=== PATIENT | female | born 1970 | race Hispanic/Latino ===

== ENCOUNTER 2023-03-21 10:49 | Emergency (ER) | payer SELFPAY ==
--- OUTSIDE RECORDS SUMMARY | 2023-03-21 10:52 | XMS REPORT | Continuity of Care Document ---
:1970 Author Organization [facility] t Address [address] [place] [address] Care Team Providers Name Role Phone PCP, PATIENT DOES NOT HAVE A Primary Care Physician Unavaila AQUILES Jimenez Attending Clinician Unavailable MARCIO ANDERSON Attending Clinician Unavailable MARCIO ANDERSON Admitting Clinician Unavailable Problems This patient has no known problems. Allergies, Adverse Reactions, Alerts Allergy Allergy Status Severity Reaction(s) Onset Inactive Treating Comm ents Source Name Type Date Date Clinician ACETAMIN DRUG Active Palpitations Un faith OPHEN INGREDI 9-15 ity of 00:00: [place] [address] [facility] Medications Ordered Filled Start Stop Current Ordering Indication Dosage Frequency Signature Comments Components Source Medication Medication Date Date Medication? Clinician (SIG) Name Name levothyroxi No 1mcg ne 125 mcg 4-15 tablet 00:00: 00 Dose 2020-07 No Unknown 2-10 00:00: 00 levothyroxi 2020-07 No 1mcg ne 125 mcg 2-10 tablet 00:00: 00 levothyroxi 2020-07 No 1mcg ne 125 mcg 2-08 tablet 00:00: 00 levothyroxi 2020-07 No 1mcg ne 125 mcg 0-29 tablet 00:00: 00 levothyroxi No 1mcg ne 125 mcg 7-09 tablet 00:00: 00 levothyroxi 0 No 1mcg ne 125 mcg 5-13 tablet 00:00: 00 levothyroxi 2019-07 No 1mcg ne 125 mcg 2-18 tablet 00:00: 00 levothyroxi 2020-1 No 1mcg ne 112 mcg 0-20 tablet 00:00: 00 spironolact 2020-0 No 1mg one 25 mg 9-17 tablet 00:00: 00 levothyroxi 2020-0 No 1mcg ne 112 mcg 9-17 tablet 00:00: 00 levothyroxi 2020-0 No 1mcg ne 137 mcg 7-22 tablet 00:00: 00 levothyroxi 2020-0 No 1mcg ne 150 mcg 7-10 tablet 00:00: 00 duloxetine 2020-0 No 1mg 30 mg 7-10 capsule,del 00:00: ayed 00 release levothyroxi 2020-0 No 1mcg ne 150 mcg 7-02 tablet 00:00: 00 Vital Signs Vital Name Observation Time Observation Value Comments Source BP Systolic 2022-03-30 08:44:00 119 mm[Hg] BP Diastolic 2022-03-30 08:44:00 78 mm[Hg] Weight Measured 2022-03-30 08:44:00 202.60 pounds Height Measured 2022-03-30 08:44:00 67.00 inches Body Temperature 2022-03-30 08:44:00 98.20 degrees Heart Rate 2022-03-30 08:44:00 86.00 /min Respiratory Rate 2022-03-30 08:44:00 18.00 /min BP Systolic 2021-06-16 14:20:00 126 mm[Hg] BP Diastolic 2021-06-16 14:20:00 82 mm[Hg] Weight Measured 2021-06-16 14:20:00 206.40 pounds Height Measured 2021-06-16 14:20:00 67.00 inches Body Temperature 2021-06-16 14:20:00 98.40 degrees Heart Rate 2021-06-16 14:20:00 86.00 /min Respiratory Rate 2021-06-16 14:20:00 BP Systolic 2021-06-08 09:44:00 117 mm[Hg] BP Diastolic 2021-06-08 09:44:00 78 mm[Hg] Weight Measured 2021-06-08 09:44:00 206.60 pounds Height Measured 2021-06-08 09:44:00 67.00 inches Body Temperature 2021-06-08 09:44:00 98.30 degrees Heart Rate 2021-06-08 09:44:00 90.00 /min Respiratory Rate 2021-06-08 09:44:00 BP Systolic 2021-01-10 11:09:00 121 mm[Hg] BP Diastolic 2021-01-10 11:09:00 66 mm[Hg] Weight Measured 2021-01-10 11:09:00 220.00 pounds Height Measured 2021-01-10 11:09:00 67.00 inches Body Temperature 2021-01-10 11:09:00 97.90 degrees Heart Rate 2021-01-10 11:09:00 64.00 /min Respiratory Rate 2021-01-10 11:09:00 16.00 /min BP Systolic 2020-06-22 13:15:00 131 mm[Hg] BP Diastolic 2020-06-22 13:15:00 71 mm[Hg] Weight Measured 2020-06-22 13:15:00 201.20 pounds Height Measured 2020-06-22 13:15:00 67.00 inches Body Temperature 2020-06-22 13:15:00 98.50 degrees Heart Rate 2020-06-22 13:15:00 72.00 /min Respiratory Rate 2020-06-22 13:15:00 17.00 /min BP Systolic 2020-01-15 09:14:00 105 mm[Hg] BP Diastolic 2020-01-15 09:14:00 70 mm[Hg] Weight Measured 2020-01-15 09:14:00 180.40 pounds Height Measured 2020-01-15 09:14:00 67.00 inches Body Temperature 2020-01-15 09:14:00 98.50 degrees Heart Rate 2020-01-15 09:14:00 78.00 /min Respiratory Rate 2020-01-15 09:14:00 16.00 /min BP Systolic 2020-01-07 08:07:00 114 mm[Hg] BP Diastolic 2020-01-07 08:07:00 74 mm[Hg] Weight Measured 2020-01-07 08:07:00 176.40 pounds Height Measured 2020-01-07 08:07:00 67.00 inches Body Temperature 2020-01-07 08:07:00 98.50 degrees Heart Rate 2020-01-07 08:07:00 74.00 /min Respiratory Rate 2020-01-07 08:07:00 16.00 /min Procedures This patient has no known procedures. Plan of Care Planned Activity Planned Date Details Comments Source Goal Plan of Care Note [code = 32918-4] Goal Plan of Care Note [code = 08049-2] Goal Plan of Care Note [code = 01620-2] Goal Plan of Care Note [code = 14292-4] Goal Plan of Care Note [code = 40270-5] Goal Plan of Care Note [code = 84292-0] Goal Plan of Care Note [code = 87100-6] Goal Plan of Care Note [code = 49341-8] Goal Plan of Care Note [code = 77863-8] Goal Plan of Care Note [code = 86216-7] Goal Plan of Care Note [code = 40475-8] Goal Plan of Care Note [code = 15016-0] Goal Plan of Care Note [code = 56879-3] Goal Plan of Care Note [code = 35904-7] Goal Plan of Care Note [code = 46125-0] Goal Plan of Care Note [code = 67583-8] Goal Plan of Care Note [code = 24853-6] Goal Plan of Care Note [code = 48906-7] Goal Plan of Care Note [code = 44627-1] Goal Plan of Care Note [code = 94743-9] Goal Plan of Care Note [code = 45045-9] Goal Plan of Care Note [code = 99776-9] Goal Plan of Care Note [code = 61833-1] Goal Plan of Care Note [code = 66403-0] Goal Plan of Care Note [code = 33065-8] Goal Plan of Care Note [code = 56657-4] Goal Plan of Care Note [code = 04770-9] Goal Plan of Care Note [code = 60705-6] Encounters Start End Encounter Admission Attending Care Care Encounter Source Date/Time Date/Time Type Type Clinicians Facility Department ID 2023-01-07 2023-01-07 Outpatient AMARIS GLEZ [id number] Mukesh 10:10:29 10:10:29 0703 Hai Black 2022-07-30 2022-07-30 Outpatient AMARIS GLEZ [id number] Mukesh 09:02:04 09:02:04 0123 Hai Black 2022-04-06 2022-04-06 Outpatient [facility] [id number] Mukesh 13:29:56 13:29:56 0930 F Wayne 2022-03-30 2022-03-30 Outpatient [id number] 00:00:00 00:00:00 Visit [id number] 2020-02-02 2020-02-02 Emergency X [facility] ERT [id number] [facility] 07:56:15 07:56:15 AQUILES [facility] 2019-11-09 2019-11-09 Emergency [facility] [id number] [facility] 13:27:05 18:13:00 MARCIO [facility] Results Test Description Test Time Test Comments Results Result Comments Source FSH + LH PROFILE 2023-01-08 06:13:29 Test Item Value Reference Range Interpretation Comme nts FOLLICLE STIM HORMONE (test 13.2 IU/L SEE BELOW EXPECTED VALUES FOR FSH code = 2700) FOR FEMALES >17 YEARS FOLLICULAR 3.5- 12.5 IU/L MID-CYCLE PEAK 4.7-21.5 IU/L LUTEAL PHASE 1. 7-7.7 IU/L POSTMENOPAUSAL 25.8-134.8 IU/L LUTEINIZING HORMONE (test code 4.4 IU/L SEE BELOW EXPECTED VALUES FOR LH = 2776) FOR FEMALES >17 YEARS MALES FEMALES >=18 YEARS 1.8-8.6 IU/L FOLLICULAR 2.4-12.6 IU/L MID-CYCLE PEAK 14.0-95.6 IU/L LUTEAL PHASE 1. 0-11.4 IU/L POSTMENOPAUSAL 7.7-58.5 IU/L TSH, THIRD [id number] 06:13:29 Test Item Value Reference Range Interpretation Comments TSH, THIRD GENERATION (test code 7.080 UIU/ML 0.400-4.100 H = 2821) [id number] 06:13:29 Test Item Value Reference Range Interpretation Comments PROLACTIN (test 3.5 NG/ML 5.0-37.0 L NOTE: Metho dology is Aydee code = 2800) [place] Electroch emiluminescence Immunoassay (EC JOEY). Values obtained with d ifferent assays/manufact urers cannot be used interchang eably. Results should not be u sed as sole basis to establ fang the presence or abs ence of malignancy. UNL ESS OTHERWISE INDICATED, [facility]. [address] [place] [address] LABORATORY DIRE CTOR: Nargis ROMERO JOEY NUMBER [id number] [facility] [place]. [id number] CBC W/AUTO DIFF WITH [id number] 03:27:20 Test Item Value Reference Range Interpretation Comments WBC (test code = 8.3 K/UL 3.5-11.0 1001) RBC (test code = 4.42 M/UL 3.80-5.40 1002) HEMOGLOBIN (test code 14.3 G/DL 11.5-15.5 = 1003) HEMATOCRIT (test code 42.6 % 34.0-45.0 = 1004) MCV (test code = 96.4 fL 80.0-99.0 1005) MCH (test code = 32.4 PG 25.0-33.0 1006) MCHC (test code = 33.6 G/DL 31.0-36.0 1007) RDW (test code = 13.6 % 11.5-15.0 1038) NEUTROPHILS (test 69.6 % code = 1008) LYMPHOCYTES (test 23.1 % code = 1010) MONOCYTES (test code 5.8 % = 1011) EOSINOPHILS (test 1.1 % code = 1012) BASOPHILS (test code 0.2 % = 1013) IMMATURE GRANULOCYTES 0.2 % (test code = 1036) NUCLEATED RBCS (test 0.0 /100 WBC'S See_Comment [Aut omated code = 1065) message] The sy stem which generated this result transmitted reference range : 0.0. The refere nce range was not u sed to interpret th is result as normal/abnormal . PLATELET COUNT (test 237 K/UL 130-400 code = 1015) ABSOLUTE NEUTROPHILS 5.78 K/UL 1.50-7.50 (test code = 1066) ABSOLUTE LYMPHOCYTES 1.92 K/UL 1.00-4.00 (test code = 1067) ABSOLUTE MONOCYTES 0.48 K/UL 0.20-1.00 (test code = 1068) ABSOLUTE EOSINOPHILS 0.09 K/UL 0.00-0.50 (test code = 1040) ABSOLUTE BASOPHILS 0.02 K/UL 0.00-0.20 (test code = 1069) ABS IMMATURE 0.02 K/UL 0.00-0.10 GRANULOCYTES (test code = 1020) ABS NUCLEATED RBCS 0.00 K/UL 0.00-0.11 (test code = 60359) TSH, THIRD [id number] 05:49:44 Test Item Value Reference Range Interpretation Comments TSH, THIRD GENERATION (test 13.700 UIU/ML 0.400-4.100 H code = 2821) LIPID [id number] 04:53:21 Test Item Value Reference Range Interpretation Comments CHOLESTEROL (test 247 MG/DL <200 H code = 2210) TRIGLYCERIDES (test 188 MG/DL <150 H code = 2232) HDL CHOLESTEROL (test 46 MG/DL >39 code = 2220) CALC LDL CHOL (test 167 MG/DL <100 H NOTE: C ALCULATED LDL code = 2237) IS BASED ON LEANNE-MCCALL METHOD WHICHINCLUDES ADJUSTABLE TRIGLYCERIDE:VL DL CHOLESTEROL RAT IO.THIS FACTOR VARIES B Y MEASURED TRIGLY CERIDE AND NON-HDLCHOL ESTEROL CONCENTRATIONS WITH INCREASED CALCU LATED LDL SEENIN HIGH ER TRIGLYCERIDE OR LOWER NON-HDL SPECIME NS. FOR MOREINFORMATION , SEE CLIENT ANNOUNCE MENT AT [email or web address] LDL/HDL 3.63 RATIO <3.22 H UNLESS O THERWISE (test code = 2238) INDICATED , ALL TESTING PERFORMED [facility], [place]. [address] [place] [address] [facility] DIRECTOR: Nargis ROGERSIA NUMBER [id number] CAP ACCREDITATION N O. [id number] COMPREHENSIVE METABOLIC [id number] 04:53:21 Test Item Value Reference Range Interpretation Comments GLUCOSE (test code = 87 MG/DL 70-99 2216) BUN (test code = 13 MG/DL 6-20 2207) CREATININE (test 0.79 MG/DL 0.60-1.30 code = 2214) eGFR (2020 CKD-EPI) 90 ML/MIN/1.73 >60 (test code = 95197) CALC BUN/CREAT (test 16 RATIO 6-28 code = 2235) SODIUM (test code = 139 MEQ/L 998-257 6612) POTASSIUM (test code 4.5 MEQ/L 3.5-5.4 = 2227) CHLORIDE (test code 103 MEQ/L 95-107 = 2214) CARBON DIOXIDE (test 24 MEQ/L 19-31 code = 220) CALCIUM (test code = 9.8 MG/DL 8.5-10.5 2208) PROTEIN, TOTAL (test 7.0 G/DL 6.1-8.3 code = 222) ALBUMIN (test code = 4.3 G/DL 3.5-5.2 2200) CALC GLOBULIN (test 2.7 G/DL 1.9-3.7 code = 224) CALC A/G RATIO (test 1.6 RATIO 1.0-2.6 code = 2233) BILIRUBIN, TOTAL <0.2 MG/DL See_Comment [Automated message] (test code = 2206) The [employer] which generated this result transmit abhijit reference range : <=1.2. The refe rence range was not u sed to interpret th is result as normal/abnormal . ALKALINE PHOSPHATASE 93 U/L 40-132 (test code = 2203) AST (test code = 13 U/L 9-40 2217) ALT (test code = 13 U/L 5-40 2218) TSH, THIRD [id number] 06:48:48 Test Item Value Reference Range Interpretation Comments TSH, THIRD GENERATION (test 38.600 UIU/ML 0.400-4.100 H code = 2821) LIPID [id number] 05:28:57 Test Item Value Reference Range Interpretation Comments CHOLESTEROL (test 232 MG/DL <200 H code = 2210) TRIGLYCERIDES (test 204 MG/DL <150 H code = 2232) HDL CHOLESTEROL (test 41 MG/DL >39 code = 2220) CALC LDL CHOL (test 155 MG/DL <100 H NOTE: C ALCULATED LDL code = 2237) IS BASED ON LEANNE-MCCALL METHOD WHICHINCLUDES ADJUSTABLE TRIGLYCERIDE:VL DL CHOLESTEROL RAT IO.THIS FACTOR VARIES B Y MEASURED TRIGLY CERIDE AND NON-HDLCHOL ESTEROL CONCENTRATIONS WITH INCREASED CALCU LATED LDL SEENIN HIGH ER TRIGLYCERIDE OR LOWER NON-HDL SPECIME NS. FOR MOREINFORMATION , SEE CLIENT ANNOUNCE MENT AT [email or web address] LDL/HDL 3.78 RATIO <3.22 H UNLESS O THERWISE (test code = 2238) INDICATED , ALL TESTING PERFORMED [facility], [facility]. [address] [place] [address] [facility] DIRECTOR: ANIL COSBY M.D. CLIA NUMBER [id number] CAP ACCREDITATION N O. [id number] PAP TEST, THINPREP, [id number] 14:21:09 Test Item Value Reference Range Interpretation Comments SOURCE: (test Cervical/Endoc code = 8001) ervical SLIDES: (test 2 code = 8011) LMP: (test code 06/09/2021 = 8021) SPECIMEN (NOTE) Satisfactory f or ADEQUACY: (test evaluation. Endocervical code = 24147) cells/transfor mation zone component present. INTERPRETATION: NILM/NO EPITH. (test code = ABNORMALITY;SE 43366) E BELOW ------- NEGATIVE FO R INTRAEPITHELIAL LESION OR MALIGNANCY ( NILM) --------- --------- --------- - OTHER COMMENTS: (NOTE) Interpreted using an (test code = alternate metho d of 8081) processing. Thi s testwas developed and i ts performance characteristics determined by [facility] [employer] It has not been cleared orappro cam by the FDA. The la boratory is regulated un rubi CLIA asqualified to perform high-complexity testing. This test is us edfor clinical purpos es. It should not be r egarded asinvestigation al or for research. REPORTS DEVELOPER Alicia : (test code = Margaux, 8101) CT(ASCP) QC TECHNOLOGIST: Aissatou (test code = AUSTIN Slater(ASC 8111) P)CT(IAC) LOCATION: (test (NOTE) Specimens pr ocessed and code = 40003) interpreted at [facility], [address] [place] [address], , CLIA: [id number] CPT: (test code (NOTE) 74770 UNLESS OTHERWISE = 8140) INDICATED, COMP UTER AIDED AND CYTOTECHNOLOGIS T SCREENING PERFO RMED. The Pap test is a s creening test with an in herent, but low probabi lity of error. Your pat ient should be remin ded to consult you imm ediately if she experien kyler any suspicious sign s or symptoms, regar dless of her Pap test re sult. An alternate repor t format containing imag es or consolidated pr ior Pap history is avai lable as applicable. PAP TEST, THINPREP, [id number] 00:00:00 Test Item Value Reference Range Interpretation Comments SOURCE: (test code = Cervical/Endocervical 8001) SLIDES: (test code = 2 8011) LMP: (test code = 8021) 06/09/2021 SPECIMEN ADEQUACY: (test (NOTE) code = 53845) INTERPRETATION: (test NILM/NO EPITH. code = 11505) ABNORMALITY;SEE BELOW OTHER COMMENTS: (test (NOTE) code = 8081) REPORTS DEVELOPER: (test Alicia Damico, code = 8101) CT(ASCP) QC TECHNOLOGIST: (test Aissatou code = 8111) AUSTIN Slater(ASCP)CT(IA C) LOCATION: (test code = (NOTE) 96299) CPT: (test code = 8140) (NOTE) PAP TEST, THINPREP, [id number] 00:00:00 Test Item Value Reference Range Interpretation Comments SOURCE: (test code = Cervical/Endocervical 8001) SLIDES: (test code = 2 8011) LMP: (test code = 8021) 06/09/2021 SPECIMEN ADEQUACY: (test (NOTE) code = 20956) INTERPRETATION: (test NILM/NO EPITH. code = 20516) ABNORMALITY;SEE BELOW OTHER COMMENTS: (test (NOTE) code = 8081) REPORTS DEVELOPER: (test Alicia Damico, code = 8101) CT(ASCP) QC TECHNOLOGIST: (test Aissatou code = 8111) AUSTIN Slater(ASCP)CT(IA C) LOCATION: (test code = (NOTE) 63333) CPT: (test code = 8140) (NOTE) CT/NG, TMA, [id number] 18:06:03 Test Item Value Reference Range Interpretation Comments GONORRHEA, TMA NEGATIVE NEGATIVE Assay method ology is (test code = nucleic acid am plification 21597) by transcriptio n mediated amplification ( TMA) utilizing the A ptima Combo 2 Assay. CHLAMYDIA, TMA NEGATIVE NEGATIVE Assay method ology is (test code = nucleic acid am plification 25811) by transcriptio n mediated amplification ( TMA) utilizing the A ptima Combo 2 Assay. UNLESS OTHERWISE INDICATED, ALL TESTING PERFORMED [facility] [address] [place] [address] DIRECTOR: ANIL COSBY M.D. CLIA NUMBER [id number] CAP ACCREDITATION N O. [id number] GC AND CHLAMYDIA AMPLIFIED, [id number] 00:00:00 Test Item Value Reference Range Interpretation Comments GONORRHEA, TMA (test code = 99873) NEGATIVE CHLAMYDIA, TMA (test code = 37264) NEGATIVE GC AND CHLAMYDIA AMPLIFIED, [id number] 00:00:00 Test Item Value Reference Range Interpretation Comments GONORRHEA, TMA (test code = 86188) NEGATIVE CHLAMYDIA, TMA (test code = 69613) NEGATIVE LIPID [id number] 00:00:00 Test Item Value Reference Range Interpretation Comments CHOLESTEROL (test code = 2210) 239 MG/DL TRIGLYCERIDES (test code = 2232) 230 MG/DL HDL CHOLESTEROL (test code = 2220) 37 MG/DL CALC LDL CHOL (test code = 2237) 163 MG/DL RISK RATIO LDL/HDL (test code = 4.41 RATIO 2238) LIPID [id number] 00:00:00 Test Item Value Reference Range Interpretation Comments CHOLESTEROL (test code = 2210) 239 MG/DL TRIGLYCERIDES (test code = 2232) 230 MG/DL HDL CHOLESTEROL (test code = 2220) 37 MG/DL CALC LDL CHOL (test code = 2237) 163 MG/DL RISK RATIO LDL/HDL (test code = 4.41 RATIO 2238) COMPREHENSIVE METABOLIC [id number] 00:00:00 Test Item Value Reference Range Interpretation Comments GLUCOSE (test code = 2217) 96 MG/DL BUN (test code = 2208) 10 MG/DL CREATININE (test code = 2214) 0.76 MG/DL eGFR AMER. (test code 105 ML/MIN/1.73 = 63316) eGFR NON- AMER. (test 91 ML/MIN/1.73 code = 50482) CALC BUN/CREAT (test code = 13 RATIO 2235) SODIUM (test code = 2231) 141 MEQ/L POTASSIUM (test code = 2228) 4.6 MEQ/L CHLORIDE (test code = 2215) 104 MEQ/L CARBON DIOXIDE (test code = 24 MEQ/L 2205) CALCIUM (test code = 2209) 9.7 MG/DL PROTEIN, TOTAL (test code = 7.5 G/DL 2228) ALBUMIN (test code = 2201) 4.4 G/DL CALC GLOBULIN (test code = 3.1 G/DL 2240) CALC A/G RATIO (test code = 1.4 RATIO 2234) BILIRUBIN, TOTAL (test code = 0.3 MG/DL 2206) ALKALINE PHOSPHATASE (test 124 U/L code = 2204) AST (test code = 2218) 18 U/L ALT (test code = 2219) 21 U/L COMPREHENSIVE METABOLIC [id number] 00:00:00 Test Item Value Reference Range Interpretation Comments GLUCOSE (test code = 2217) 96 MG/DL BUN (test code = 2208) 10 MG/DL CREATININE (test code = 2214) 0.76 MG/DL eGFR AMER. (test code 105 ML/MIN/1.73 = 28259) eGFR NON- AMER. (test 91 ML/MIN/1.73 code = 68955) CALC BUN/CREAT (test code = 13 RATIO 2235) SODIUM (test code = 2231) 141 MEQ/L POTASSIUM (test code = 2228) 4.6 MEQ/L CHLORIDE (test code = 2215) 104 MEQ/L CARBON DIOXIDE (test code = 24 MEQ/L 2205) CALCIUM (test code = 2209) 9.7 MG/DL PROTEIN, TOTAL (test code = 7.5 G/DL 2228) ALBUMIN (test code = 2201) 4.4 G/DL CALC GLOBULIN (test code = 3.1 G/DL 2239) CALC A/G RATIO (test code = 1.4 RATIO 2233) BILIRUBIN, TOTAL (test code = 0.3 MG/DL 2206) ALKALINE PHOSPHATASE (test 124 U/L code = 220) AST (test code = 2218) 18 U/L ALT (test code = 2219) 21 U/L THYROID II PROFILE (T3U, T4, T7, TSH)2021-06-09 00:00:00 Test Item Value Reference Range Interpretation Comments T-UPTAKE (test code = 2817) 27.2 % THYROX. BIND. CAPAC. (test code 1.2 = 01763) T4 (THYROXINE) (test code = 5.1 UG/DL 2818) CORRECTED T4 (FTI) (test code = 4.3 UG/DL 2820) TSH, THIRD GENERATION (test 15.600 UIU/ML code = 2821) THYROID II PROFILE (T3U, T4, T7, TSH)2021-06-09 00:00:00 Test Item Value Reference Range Interpretation Comments T-UPTAKE (test code = 7) 27.2 % THYROX. BIND. CAPAC. (test code 1.2 = 60044) T4 (THYROXINE) (test code = 5.1 UG/DL 2819) CORRECTED T4 (FTI) (test code = 4.3 UG/DL 2820) TSH, THIRD GENERATION (test 15.600 UIU/ML code = 2821) LIPID [id number] 00:00:00 Test Item Value Reference Range Interpretation Comments CHOLESTEROL (test code = 2210) 231 MG/DL TRIGLYCERIDES (test code = 2232) 224 MG/DL HDL CHOLESTEROL (test code = 2220) 45 MG/DL CALC LDL CHOL (test code = 2237) 150 MG/DL RISK RATIO LDL/HDL (test code = 3.33 RATIO 2238) LIPID [id number] 00:00:00 Test Item Value Reference Range Interpretation Comments CHOLESTEROL (test code = 2210) 231 MG/DL TRIGLYCERIDES (test code = 2232) 224 MG/DL HDL CHOLESTEROL (test code = 2220) 45 MG/DL CALC LDL CHOL (test code = 2237) 150 MG/DL RISK RATIO LDL/HDL (test code = 3.33 RATIO 2238) COMPREHENSIVE METABOLIC [id number] 00:00:00 Test Item Value Reference Range Interpretation Comments GLUCOSE (test code = 2217) 107 MG/DL BUN (test code = 2208) 13 MG/DL CREATININE (test code = 2214) 0.80 MG/DL eGFR AMER. (test code 100 ML/MIN/1.73 = 96976) eGFR NON- AMER. (test 86 ML/MIN/1.73 code = 18688) CALC BUN/CREAT (test code = 16 RATIO 2235) SODIUM (test code = 2231) 139 MEQ/L POTASSIUM (test code = 2228) 4.1 MEQ/L CHLORIDE (test code = 2215) 101 MEQ/L CARBON DIOXIDE (test code = 26 MEQ/L 2205) CALCIUM (test code = 2209) 9.5 MG/DL PROTEIN, TOTAL (test code = 7.2 G/DL 2228) ALBUMIN (test code = 2201) 4.2 G/DL CALC GLOBULIN (test code = 3.0 G/DL 2239) CALC A/G RATIO (test code = 1.4 RATIO 4) BILIRUBIN, TOTAL (test code = <0.2 MG/DL 2206) ALKALINE PHOSPHATASE (test 121 U/L code = 2204) AST (test code = 2218) 16 U/L ALT (test code = 2219) 18 U/L COMPREHENSIVE METABOLIC [id number] 00:00:00 Test Item Value Reference Range Interpretation Comments GLUCOSE (test code = 2217) 107 MG/DL BUN (test code = 2208) 13 MG/DL CREATININE (test code = 2214) 0.80 MG/DL eGFR AMER. (test code 100 ML/MIN/1.73 = 28519) eGFR NON- AMER. (test 86 ML/MIN/1.73 code = 25440) CALC BUN/CREAT (test code = 16 RATIO 2235) SODIUM (test code = 2231) 139 MEQ/L POTASSIUM (test code = 2228) 4.1 MEQ/L CHLORIDE (test code = 2215) 101 MEQ/L CARBON DIOXIDE (test code = 26 MEQ/L 2205) CALCIUM (test code = 2209) 9.5 MG/DL PROTEIN, TOTAL (test code = 7.2 G/DL 2228) ALBUMIN (test code = 2201) 4.2 G/DL CALC GLOBULIN (test code = 3.0 G/DL 2240) CALC A/G RATIO (test code = 1.4 RATIO 2234) BILIRUBIN, TOTAL (test code = <0.2 MG/DL 2206) ALKALINE PHOSPHATASE (test 121 U/L code = 2204) AST (test code = 2218) 16 U/L ALT (test code = 2219) 18 U/L THYROID II PROFILE (T3U, T4, T7, TSH)2021-01-11 00:00:00 Test Item Value Reference Range Interpretation Comments T-UPTAKE (test code = 2817) 24.3 % THYROX. BIND. CAPAC. (test code 1.3 = 31775) T4 (THYROXINE) (test code = 2.9 UG/DL 2819) CORRECTED T4 (FTI) (test code = 2.2 UG/DL 2820) TSH, THIRD GENERATION (test 19.400 UIU/ML code = 2821) THYROID II PROFILE (T3U, T4, T7, TSH)2021-01-11 00:00:00 Test Item Value Reference Range Interpretation Comments T-UPTAKE (test code = 2817) 24.3 % THYROX. BIND. CAPAC. (test code 1.3 = 82892) T4 (THYROXINE) (test code = 2.9 UG/DL 2819) CORRECTED T4 (FTI) (test code = 2.2 UG/DL 2820) TSH, THIRD GENERATION (test 19.400 UIU/ML code = 2821) COMPREHENSIVE METABOLIC [id number] 00:00:00 Test Item Value Reference Range Interpretation Comments GLUCOSE (test code = 2217) 82 MG/DL BUN (test code = 2208) 9 MG/DL CREATININE (test code = 2214) 0.73 MG/DL eGFR AMER. (test code 111 ML/MIN/1.73 = 20203) eGFR NON- AMER. (test 96 ML/MIN/1.73 code = 44077) CALC BUN/CREAT (test code = 12 RATIO 2235) SODIUM (test code = 2231) 138 MEQ/L POTASSIUM (test code = 2228) 4.3 MEQ/L CHLORIDE (test code = 2215) 102 MEQ/L CARBON DIOXIDE (test code = 25 MEQ/L 2205) CALCIUM (test code = 2209) 9.7 MG/DL PROTEIN, TOTAL (test code = 7.2 G/DL 2228) ALBUMIN (test code = 2201) 3.9 G/DL CALC GLOBULIN (test code = 3.3 G/DL 2240) CALC A/G RATIO (test code = 1.2 RATIO 2234) BILIRUBIN, TOTAL (test code = 0.4 MG/DL 2206) ALKALINE PHOSPHATASE (test 105 U/L code = 2204) AST (test code = 2218) 15 U/L ALT (test code = 2219) 12 U/L COMPREHENSIVE METABOLIC [id number] 00:00:00 Test Item Value Reference Range Interpretation Comments GLUCOSE (test code = 2217) 82 MG/DL BUN (test code = 2208) 9 MG/DL CREATININE (test code = 2214) 0.73 MG/DL eGFR AMER. (test code 111 ML/MIN/1.73 = 54046) eGFR NON- AMER. (test 96 ML/MIN/1.73 code = 17227) CALC BUN/CREAT (test code = 12 RATIO 2235) SODIUM (test code = 2231) 138 MEQ/L POTASSIUM (test code = 2228) 4.3 MEQ/L CHLORIDE (test code = 2215) 102 MEQ/L CARBON DIOXIDE (test code = 25 MEQ/L 2205) CALCIUM (test code = 2209) 9.7 MG/DL PROTEIN, TOTAL (test code = 7.2 G/DL 2228) ALBUMIN (test code = 2201) 3.9 G/DL CALC GLOBULIN (test code = 3.3 G/DL 2240) CALC A/G RATIO (test code = 1.2 RATIO 2234) BILIRUBIN, TOTAL (test code = 0.4 MG/DL 7) ALKALINE PHOSPHATASE (test 105 U/L code = 2204) AST (test code = 2218) 15 U/L ALT (test code = 2219) 12 U/L CBC W/AUTO [id number] 00:00:00 Test Item Value Reference Range Interpretation Comments WBC (test code = 1001) 8.9 K/UL RBC (test code = 1002) 4.42 M/UL HEMOGLOBIN (test code = 1003) 13.7 G/DL HEMATOCRIT (test code = 1004) 39.7 % MCV (test code = 1005) 89.8 fL MCH (test code = 1006) 31.0 PG MCHC (test code = 1007) 34.5 G/DL RDW (test code = 1038) 13.6 % NEUTROPHILS (test code = 1008) 70.4 % LYMPHOCYTES (test code = 1010) 21.6 % MONOCYTES (test code = 1011) 5.5 % EOSINOPHILS (test code = 1012) 2.3 % BASOPHILS (test code = 1013) 0.2 % PLATELET COUNT (test code = 1015) 300 K/UL CBC W/AUTO [id number] 00:00:00 Test Item Value Reference Range Interpretation Comments WBC (test code = 1001) 8.9 K/UL RBC (test code = 1002) 4.42 M/UL HEMOGLOBIN (test code = 1003) 13.7 G/DL HEMATOCRIT (test code = 1004) 39.7 % MCV (test code = 1005) 89.8 fL MCH (test code = 1006) 31.0 PG MCHC (test code = 1007) 34.5 G/DL RDW (test code = 1038) 13.6 % NEUTROPHILS (test code = 1008) 70.4 % LYMPHOCYTES (test code = 1010) 21.6 % MONOCYTES (test code = 1011) 5.5 % EOSINOPHILS (test code = 1012) 2.3 % BASOPHILS (test code = 1013) 0.2 % PLATELET COUNT (test code = 1015) 300 K/UL CBC W/AUTO [id number] 00:00:00 Test Item Value Reference Range Interpretation Comments WBC (test code = 1001) 8.9 K/UL RBC (test code = 1002) 4.42 M/UL HEMOGLOBIN (test code = 1003) 13.7 G/DL HEMATOCRIT (test code = 1004) 39.7 % MCV (test code = 1005) 89.8 fL MCH (test code = 1006) 31.0 PG MCHC (test code = 1007) 34.5 G/DL RDW (test code = 1038) 13.6 % NEUTROPHILS (test code = 1008) 70.4 % LYMPHOCYTES (test code = 1010) 21.6 % MONOCYTES (test code = 1011) 5.5 % EOSINOPHILS (test code = 1012) 2.3 % BASOPHILS (test code = 1013) 0.2 % PLATELET COUNT (test code = 1015) 300 K/UL LIPID [id number] 00:00:00 Test Item Value Reference Range Interpretation Comments CHOLESTEROL (test code = 2210) 217 MG/DL TRIGLYCERIDES (test code = 2232) 184 MG/DL HDL CHOLESTEROL (test code = 2220) 48 MG/DL CALC LDL CHOL (test code = 2237) 137 MG/DL RISK RATIO LDL/HDL (test code = 2.85 RATIO 2238) LIPID [id number] 00:00:00 Test Item Value Reference Range Interpretation Comments CHOLESTEROL (test code = 2210) 217 MG/DL TRIGLYCERIDES (test code = 2232) 184 MG/DL HDL CHOLESTEROL (test code = 2220) 48 MG/DL CALC LDL CHOL (test code = 2237) 137 MG/DL RISK RATIO LDL/HDL (test code = 2.85 RATIO 2238) [id number] 00:00:00 Test Item Value Reference Range Interpretation Comments TSH, THIRD GENERATION (test code 4.400 UIU/ML = 2821) [id number] 00:00:00 Test Item Value Reference Range Interpretation Comments TSH, THIRD GENERATION (test code 4.400 UIU/ML = 2821) [id number] 00:00:00 Test Item Value Reference Range Interpretation Comments TSH, THIRD GENERATION (test code 4.400 UIU/ML = 2821) SARS-CoV-2 (COVID-19) by RT-PCR (HIGH RISK)2020-05-13 00:00:00 Test Item Value Reference Range Interpretation Comments SARS-CoV-2 INTERPRETATION Negative (test code = 23147) SOURCE (test code = 27545) NASOPHARYNGEAL_SWAB _IN_VTM__UTM SARS-CoV-2 (COVID-19) by RT-PCR (HIGH RISK)2020-04-28 00:00:00 Test Item Value Reference Range Interpretation Comments SARS-CoV-2 INTERPRETATION Positive (test code = 97558) SOURCE (test code = 31156) Nasal_Swab_in_VTM__ UTM THYROID II PROFILE (T3U, T4, T7, TSH)2020-03-24 00:00:00 Test Item Value Reference Range Interpretation Comments T-UPTAKE (test code = 2817) 24.3 % THYROX. BIND. CAPAC. (test code 1.3 = 87710) T4 (THYROXINE) (test code = 2.1 UG/DL 2819) CORRECTED T4 (FTI) (test code = 1.6 UG/DL 2820) TSH, THIRD GENERATION (test 35.100 UIU/ML code = 2821) THYROID II PROFILE (T3U, T4, T7, TSH)2020-03-24 00:00:00 Test Item Value Reference Range Interpretation Comments T-UPTAKE (test code = 2817) 24.3 % THYROX. BIND. CAPAC. (test code 1.3 = 45203) T4 (THYROXINE) (test code = 2.1 UG/DL 2819) CORRECTED T4 (FTI) (test code = 1.6 UG/DL 2820) TSH, THIRD GENERATION (test 35.100 UIU/ML code = 2821) [id number] 00:00:00 Test Item Value Reference Range Interpretation Comments TSH, THIRD GENERATION (test code 0.053 UIU/ML = 2821) [id number] 00:00:00 Test Item Value Reference Range Interpretation Comments TSH, THIRD GENERATION (test code 0.053 UIU/ML = 2821) [id number] 00:00:00 Test Item Value Reference Range Interpretation Comments TSH, THIRD GENERATION (test code 0.053 UIU/ML = 2821) CBC W/AUTO [id number] 00:00:00 Test Item Value Reference Range Interpretation Comments WBC (test code = 1001) 8.0 K/UL RBC (test code = 1002) 4.58 M/UL HEMOGLOBIN (test code = 1003) 13.0 G/DL HEMATOCRIT (test code = 1004) 38.8 % MCV (test code = 1005) 84.7 fL MCH (test code = 1006) 28.4 PG MCHC (test code = 1007) 33.5 G/DL RDW (test code = 1038) 14.4 % NEUTROPHILS (test code = 1008) 71.1 % LYMPHOCYTES (test code = 1010) 21.0 % MONOCYTES (test code = 1011) 5.5 % EOSINOPHILS (test code = 1012) 2.1 % BASOPHILS (test code = 1013) 0.3 % PLATELET COUNT (test code = 1015) 309 K/UL CBC W/AUTO [id number] 00:00:00 Test Item Value Reference Range Interpretation Comments WBC (test code = 1001) 8.0 K/UL RBC (test code = 1002) 4.58 M/UL HEMOGLOBIN (test code = 1003) 13.0 G/DL HEMATOCRIT (test code = 1004) 38.8 % MCV (test code = 1005) 84.7 fL MCH (test code = 1006) 28.4 PG MCHC (test code = 1007) 33.5 G/DL RDW (test code = 1038) 14.4 % NEUTROPHILS (test code = 1008) 71.1 % LYMPHOCYTES (test code = 1010) 21.0 % MONOCYTES (test code = 1011) 5.5 % EOSINOPHILS (test code = 1012) 2.1 % BASOPHILS (test code = 1013) 0.3 % PLATELET COUNT (test code = 1015) 309 K/UL CBC W/AUTO [id number] 00:00:00 Test Item Value Reference Range Interpretation Comments WBC (test code = 1001) 8.0 K/UL RBC (test code = 1002) 4.58 M/UL HEMOGLOBIN (test code = 1003) 13.0 G/DL HEMATOCRIT (test code = 1004) 38.8 % MCV (test code = 1005) 84.7 fL MCH (test code = 1006) 28.4 PG MCHC (test code = 1007) 33.5 G/DL RDW (test code = 1038) 14.4 % NEUTROPHILS (test code = 1008) 71.1 % LYMPHOCYTES (test code = 1010) 21.0 % MONOCYTES (test code = 1011) 5.5 % EOSINOPHILS (test code = 1012) 2.1 % BASOPHILS (test code = 1013) 0.3 % PLATELET COUNT (test code = 1015) 309 K/UL COMPREHENSIVE METABOLIC [id number] 00:00:00 Test Item Value Reference Range Interpretation Comments GLUCOSE (test code = 2217) 97 MG/DL BUN (test code = 2208) 15 MG/DL CREATININE (test code = 2214) 0.62 MG/DL eGFR AMER. (test code 123 ML/MIN/1.73 = 16775) eGFR NON- AMER. (test 106 ML/MIN/1.73 code = 26301) CALC BUN/CREAT (test code = 24 RATIO 2235) SODIUM (test code = 2231) 139 MEQ/L POTASSIUM (test code = 2228) 4.7 MEQ/L CHLORIDE (test code = 2215) 104 MEQ/L CARBON DIOXIDE (test code = 25 MEQ/L 2206) CALCIUM (test code = 2209) 9.6 MG/DL PROTEIN, TOTAL (test code = 6.6 G/DL 2228) ALBUMIN (test code = 2201) 3.7 G/DL CALC GLOBULIN (test code = 2.9 G/DL 2240) CALC A/G RATIO (test code = 1.3 RATIO 2234) BILIRUBIN, TOTAL (test code = 0.2 MG/DL 2206) ALKALINE PHOSPHATASE (test 128 U/L code = 2204) AST (test code = 2218) 31 U/L ALT (test code = 2219) 25 U/L COMPREHENSIVE METABOLIC [id number] 00:00:00 Test Item Value Reference Range Interpretation Comments GLUCOSE (test code = 2217) 97 MG/DL BUN (test code = 2208) 15 MG/DL CREATININE (test code = 2214) 0.62 MG/DL eGFR AMER. (test code 123 ML/MIN/1.73 = 06415) eGFR NON- AMER. (test 106 ML/MIN/1.73 code = 67652) CALC BUN/CREAT (test code = 24 RATIO 2235) SODIUM (test code = 2231) 139 MEQ/L POTASSIUM (test code = 2228) 4.7 MEQ/L CHLORIDE (test code = 2215) 104 MEQ/L CARBON DIOXIDE (test code = 25 MEQ/L 2206) CALCIUM (test code = 2209) 9.6 MG/DL PROTEIN, TOTAL (test code = 6.6 G/DL 2228) ALBUMIN (test code = 2201) 3.7 G/DL CALC GLOBULIN (test code = 2.9 G/DL 2240) CALC A/G RATIO (test code = 1.3 RATIO 2234) BILIRUBIN, TOTAL (test code = 0.2 MG/DL 2206) ALKALINE PHOSPHATASE (test 128 U/L code = 2204) AST (test code = 2218) 31 U/L ALT (test code = 2219) 25 U/L [id number] 00:00:00 Test Item Value Reference Range Interpretation Comments TSH, THIRD GENERATION (test code 0.132 UIU/ML = 2821) [id number] 00:00:00 Test Item Value Reference Range Interpretation Comments TSH, THIRD GENERATION (test code 0.132 UIU/ML = 2821) [id number] 00:00:00 Test Item Value Reference Range Interpretation Comments TSH, THIRD GENERATION (test code 0.132 UIU/ML = 2821) CULTURE, [id number] 00:00:00 Test Item Value Reference Range Interpretation Comments CULTURE, URINE (test SPECIMEN NUMBER: code = 52346) [id number] CULTURE, [id number] 00:00:00 Test Item Value Reference Range Interpretation Comments CULTURE, URINE (test SPECIMEN NUMBER: code = 17069) [id number] HEMOGLOBIN [id number] 00:00:00 Test Item Value Reference Range Interpretation Comments HEMOGLOBIN A1c (test code = 76767) 5.5 % HEMOGLOBIN [id number] 00:00:00 Test Item Value Reference Range Interpretation Comments HEMOGLOBIN A1c (test code = 42546) 5.5 % HEMOGLOBIN [id number] 00:00:00 Test Item Value Reference Range Interpretation Comments HEMOGLOBIN A1c (test code = 88326) 5.5 % CBC W/AUTO [id number] 00:00:00 Test Item Value Reference Range Interpretation Comments WBC (test code = 1001) 9.7 K/UL RBC (test code = 1002) 4.68 M/UL HEMOGLOBIN (test code = 1003) 12.9 G/DL HEMATOCRIT (test code = 1004) 39.4 % MCV (test code = 1005) 84.2 fL MCH (test code = 1006) 27.6 PG MCHC (test code = 1007) 32.7 G/DL RDW (test code = 1038) 14.1 % NEUTROPHILS (test code = 1008) 77.7 % LYMPHOCYTES (test code = 1010) 15.3 % MONOCYTES (test code = 1011) 5.1 % EOSINOPHILS (test code = 1012) 1.7 % BASOPHILS (test code = 1013) 0.2 % PLATELET COUNT (test code = 1015) 301 K/UL CBC W/AUTO [id number] 00:00:00 Test Item Value Reference Range Interpretation Comments WBC (test code = 1001) 9.7 K/UL RBC (test code = 1002) 4.68 M/UL HEMOGLOBIN (test code = 1003) 12.9 G/DL HEMATOCRIT (test code = 1004) 39.4 % MCV (test code = 1005) 84.2 fL MCH (test code = 1006) 27.6 PG MCHC (test code = 1007) 32.7 G/DL RDW (test code = 1038) 14.1 % NEUTROPHILS (test code = 1008) 77.7 % LYMPHOCYTES (test code = 1010) 15.3 % MONOCYTES (test code = 1011) 5.1 % EOSINOPHILS (test code = 1012) 1.7 % BASOPHILS (test code = 1013) 0.2 % PLATELET COUNT (test code = 1015) 301 K/UL CBC W/AUTO [id number] 00:00:00 Test Item Value Reference Range Interpretation Comments WBC (test code = 1001) 9.7 K/UL RBC (test code = 1002) 4.68 M/UL HEMOGLOBIN (test code = 1003) 12.9 G/DL HEMATOCRIT (test code = 1004) 39.4 % MCV (test code = 1005) 84.2 fL MCH (test code = 1006) 27.6 PG MCHC (test code = 1007) 32.7 G/DL RDW (test code = 1038) 14.1 % NEUTROPHILS (test code = 1008) 77.7 % LYMPHOCYTES (test code = 1010) 15.3 % MONOCYTES (test code = 1011) 5.1 % EOSINOPHILS (test code = 1012) 1.7 % BASOPHILS (test code = 1013) 0.2 % PLATELET COUNT (test code = 1015) 301 K/UL COMPREHENSIVE METABOLIC [id number] 00:00:00 Test Item Value Reference Range Interpretation Comments GLUCOSE (test code = 2217) 94 MG/DL BUN (test code = 2208) 11 MG/DL CREATININE (test code = 2214) 0.62 MG/DL eGFR AMER. (test code 123 ML/MIN/1.73 = 91582) eGFR NON- AMER. (test 106 ML/MIN/1.73 code = 41434) CALC BUN/CREAT (test code = 18 RATIO 2235) SODIUM (test code = 2231) 139 MEQ/L POTASSIUM (test code = 2228) 4.7 MEQ/L CHLORIDE (test code = 2215) 103 MEQ/L CARBON DIOXIDE (test code = 26 MEQ/L 2206) CALCIUM (test code = 2209) 9.8 MG/DL PROTEIN, TOTAL (test code = 7.0 G/DL 222) ALBUMIN (test code = 2201) 4.2 G/DL CALC GLOBULIN (test code = 2.8 G/DL 2240) CALC A/G RATIO (test code = 1.5 RATIO 2234) BILIRUBIN, TOTAL (test code = 0.3 MG/DL 2206) ALKALINE PHOSPHATASE (test 148 U/L code = 2204) AST (test code = 2218) 19 U/L ALT (test code = 2219) 20 U/L COMPREHENSIVE METABOLIC [id number] 00:00:00 Test Item Value Reference Range Interpretation Comments GLUCOSE (test code = 2217) 94 MG/DL BUN (test code = 2208) 11 MG/DL CREATININE (test code = 2214) 0.62 MG/DL eGFR AMER. (test code 123 ML/MIN/1.73 = 10558) eGFR NON- AMER. (test 106 ML/MIN/1.73 code = 88297) CALC BUN/CREAT (test code = 18 RATIO 2235) SODIUM (test code = 2231) 139 MEQ/L POTASSIUM (test code = 2228) 4.7 MEQ/L CHLORIDE (test code = 2215) 103 MEQ/L CARBON DIOXIDE (test code = 26 MEQ/L 2205) CALCIUM (test code = 2209) 9.8 MG/DL PROTEIN, TOTAL (test code = 7.0 G/DL 2228) ALBUMIN (test code = 2201) 4.2 G/DL CALC GLOBULIN (test code = 2.8 G/DL 2240) CALC A/G RATIO (test code = 1.5 RATIO 2234) BILIRUBIN, TOTAL (test code = 0.3 MG/DL 2206) ALKALINE PHOSPHATASE (test 148 U/L code = 2204) AST (test code = 2218) 19 U/L ALT (test code = 2219) 20 U/L [id number] 00:00:00 Test Item Value Reference Range Interpretation Comments TSH, THIRD GENERATION (test code 0.014 UIU/ML = 2821) [id number] 00:00:00 Test Item Value Reference Range Interpretation Comments TSH, THIRD GENERATION (test code 0.014 UIU/ML = 2821) [id number] 00:00:00 Test Item Value Reference Range Interpretation Comments TSH, THIRD GENERATION (test code 0.014 UIU/ML = 2821) VITAMIN D, 25 [id number] 00:00:00 Test Item Value Reference Range Interpretation Comments VITAMIN D, 25 OH (test code = 4958) 20 NG/ML VITAMIN D, 25 [id number] 00:00:00 Test Item Value Reference Range Interpretation Comments VITAMIN D, 25 OH (test code = 4958) 20 NG/ML VITAMIN [id number] 00:00:00 Test Item Value Reference Range Interpretation Comments VITAMIN B-12 (test code = 2840) 388 PG/ML VITAMIN [id number] 00:00:00 Test Item Value Reference Range Interpretation Comments VITAMIN B-12 (test code = 2840) 388 PG/ML VITAMIN [id number] 00:00:00 Test Item Value Reference Range Interpretation Comments VITAMIN B-12 (test code = 2840) 388 PG/ML SARS-CoV-2 (COVID-19) by RT-PCR (HIGH RISK)2020-01-11 00:00:00 Test Item Value Reference Range Interpretation Comments SARS-CoV-2 INTERPRETATION (test NEGATIVE code = 51305) SOURCE (test code = 12805) NOT SPECIFIED SARS-CoV-2 (COVID-19) by RT-PCR (HIGH RISK)2020-01-11 00:00:00 Test Item Value Reference Range Interpretation Comments SARS-CoV-2 INTERPRETATION (test NEGATIVE code = 67255) SOURCE (test code = 72836) NOT SPECIFIED
--- NOTE | 2023-03-21 12:21 | RAD REPORT ---
EXAM DESCRIPTION: US - Transvaginal Study Probe - 03/21/2023 12:02 pm CLINICAL HISTORY: VAGINAL BLEEDING COMPARISON: No comparisons TECHNIQUE: Sonographic grayscale and color flow images of the pelvis were obtained. FINDINGS: The uterus is normal in size, shape and echotexture. Few nabothian cysts. The uterus measu res 9.2 cm in length. The endometrial stripe measures 1.5 cm in thickness at its most bulky aspect at the fundus. No focal endometrial lesion. Both ovaries are normal in size, shape and echotexture. The right ovary measures 1.6 x 1.2 x 1.2 cm. The left ovary measures 3.4 x 2.1 x 1.7 cm. A simple appearing 2.5 cm paraovarian cyst is noted on the left. No ovarian or parovarian lesions. No adnexal masses. Doppler blood flow was difficult to evaluate along both ovaries. No significant pelvic ascites. IMPRESSION: Bulky endometrial stripe near the fundus, measuring 1.5 cm in thickness. This would be a n abnormal finding in a postmenopausal patient, correlate with menstrual status. If there is concern for underlying malignancy, consider additional evaluation by soft tissue sampling. Limited evaluation of blood flow to both ovaries. No suspicious focal adnexal lesions.
[2023-03-21 12:52] LABS: Absolute Lymphocytes (CBC) 1.9 K/uL (0.7-4.9); Hematocrit 37.9 % (36.0-45.0); Lymphocytes % 26.1 % (15.3-44.8); MPV 9.9 fL (7.6-11.3); Platelets 220 thou/uL (152-406); RBC Red Blood Cell Count 3.99 M/uL (3.86-4.86)
[2023-03-21 12:57] LABS: Protime INR 1.02
--- NOTE | 2023-03-21 13:26 | ER ---
Nurse's Notes [facility] Name: Noelle Cid Age: 52 yrs Sex: Female : 1970 Arrival Date: 03/21/2023 Time: 10:49 Bed 16 Private MD: Diagnosis: Abnormal uterine and vaginal bleeding, unspecified;Other specified abnormal uterine and vaginal bleeding Presentation: 03/21 11:10 Chief complaint: Patient states: having a period x 2 weeks, bright red and clots. My ko1 feet are also getting warm. Coronavirus screen: At this time, the client does not indicate any symptoms associated with coronavirus-19. Ebola Screen: No symptoms or risks identified at this time. Initial Sepsis Screen: Does the patient meet any 2 criteria? No. Patient's initial sepsis screen is negative. Does the patient have a suspected source of infection? No. Patient's initial sepsis screen is negative. Risk Assessment: Do you want to hurt yourself or someone else? Patient reports no desire to harm self or others. Onset of symptoms was March 21, 2023. 11:10 Method Of Arrival: Ambulatory ko1 11:10 Acuity: VILMA 3 ko1 Triage Assessment: 11:13 General: Appears in no apparent distress. Behavior is calm, cooperative, appropriate ko1 for age. Pain: Denies pain. : Reports vaginal bleeding that is bright red, with clots. 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 - Social history:: Smoking status: Patient denies any tobacco usage or history of. Screenin:19 [facility] ED Fall Risk Assessment (Adult) History of falling in the last 3 months, ph including since admission No falls in past 3 months (0 pts) Confusion or Disorientation No (0 pts) Intoxicated or Sedated No (0 pts) Impaired Gait No (0 pts) Mobility Assist Device Used No (0 pt) Altered Elimination No (0 pt) Score/Fall Risk Level 0 - 2 = Low Risk Oriented to surroundings, Maintained a safe environment, Hourly rounding (assess needs \T\ fall precautionary measures) done, Used ambulatory aids as needed (educated on \T\ assisted with). Abuse screen: Denies threats or abuse. Denies injuries from another. Nutritional screening: No deficits noted. Tuberculosis screening: No symptoms or risk factors identified. Assessment: 12:45 General: Appears in no apparent distress. comfortable, well groomed, Behavior is calm, ph cooperative, appropriate for age. Neuro: Level of Consciousness is awake, alert, obeys commands, Oriented to person, place, time, situation. Cardiovascular: Capillary refill < 3 seconds in bilateral fingers Patient's skin is warm and dry. Respiratory: Airway is patent Respiratory effort is even, unlabored. : Reports vaginal bleeding that is with clots, heavy flow Denies cramping pain. Derm: Skin is pink, warm \T\ dry. Vital Signs: 11:10 BP 137 / 82; Pulse 72; Resp 18; Temp 98.1; Pulse Ox 100% ; Weight 81.65 kg; Height 5 ko1 ft. 7 in. ; 11:10 Body Mass Index 28.19 (81.65 kg, 170.18 cm) ko1 ED Course: 10:51 Patient arrived in ED. rg4 11:13 Triage completed. ko1 11:13 Arm band placed on right wrist. Patient placed in waiting room, Patient notified of ko1 wait time. 11:32 Rico Ross MD is Attending Physician. jes 11:48 Ambar Andrade, JUAN is Primary Nurse. ko1 11:50 Patient placed in an exam room, on a stretcher. ll1 12:04 US Transvaginal Study (Probe) In Process Unspecified. EDMS 12:12 Debbie Maguire, RN is Primary Nurse. ph 12:20 Patient has correct armband on for positive identification. Call light in reach. Side ph rails up X2. Pulse ox on. NIBP on. 12:34 PT-INR Sent. ph 12:34 Abo/rh Typing Sent. ph 12:34 Basic Metabolic Panel Sent. ph 12:34 CBC with Diff Sent. ph 12:35 Test, Urine Sent. ph 12:35 Initial lab(s) drawn, by me, sent to lab. Inserted saline lock: 22 gauge in right ph antecubital area, using aseptic technique. Blood collected. 13:26 Talita Rivera MD is Referral Physician. jes 13:55 No provider procedures requiring assistance completed. IV discontinued, intact, ph bleeding controlled, No redness/swelling at site. Pressure dressing applied. Administered Medications: 13:55 Not Given (Other Intervention Used): NS 0.9% IV 1000 ml IV at 1 bolus Per protocol; ph 1000 mL bolus Medication: 12:20 VIS not applicable for this client. ph Outcome: 13: Discharge ordered by . jes 13:55 Patient left the ED. ph 13:55 Discharged to home ambulatory. 13:55 Condition: good :55 Discharge instructions given to patient. Signatures: Dispatcher [employer] EDRico De Luna MD MD cha Hall, Patricia RN RN Abi Brink rg4 Justen Vega RN RN ll1 Ambar Andrade RN RN ko1
--- NOTE | 2023-03-21 13:26 | EDPHYS ---
Physician Documentation [facility] Name: Noelle Cid Age: 52 yrs Sex: Female : 1970 Arrival Date: 03/21/2023 Time: 10:49 Bed 16 Private MD: ED Physician Rico Ross HPI: 03/21 13:21 This 52 yrs old Female presents to ER via Ambulatory with complaints of jes Vaginal Bleeding. 13:21 The patient presents with vaginal bleeding that is heavy. Onset: The symptoms/episode jes began/occurred 2 week(s) ago. Modifying factors: The symptoms are alleviated by nothing, the symptoms are aggravated by nothing. Associated signs and symptoms: Pertinent positives: vaginal bleeding. Severity of symptoms: At their worst the symptoms were mild, moderate, in the emergency department the symptoms are unchanged. The patient is sexually active, reportedly has a single partner. The patient has not experienced similar symptoms in the past. 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 - Social history:: Smoking status: Patient denies any tobacco usage or history of. ROS: 13:22 Constitutional: Negative for fever, chills, and weight loss, Eyes: Negative for injury, jes pain, redness, and discharge, ENT: Negative for injury, pain, and discharge, Neck: Negative for injury, pain, and swelling, Cardiovascular: Negative for chest pain, palpitations, and edema, Respiratory: Negative for shortness of breath, cough, wheezing, and pleuritic chest pain, Abdomen/GI: Negative for abdominal pain, nausea, vomiting, diarrhea, and constipation, Back: Negative for injury and pain, MS/Extremity: Negative for injury and deformity, Skin: Negative for injury, rash, and discoloration, Neuro: Negative for headache, weakness, numbness, tingling, and seizure, Psych: Negative for depression, anxiety, suicide ideation, homicidal ideation, and hallucinations, Allergy/Immunology: Negative for hives, rash, and allergies, Endocrine: Negative for neck swelling, polydipsia, polyuria, polyphagia, and marked weight changes, Hematologic/Lymphatic: Negative for swollen nodes, abnormal bleeding, and unusual bruising. 13:22 : Positive for vaginal bleeding. Exam: 13:22 Constitutional: This is a well developed, well nourished patient who is awake, alert, jes and in no acute distress. Head/Face: Normocephalic, atraumatic. Eyes: Pupils equal round and reactive to light, extra-ocular motions intact. Lids and lashes normal. Conjunctiva and sclera are non-icteric and not injected. Cornea within normal limits. Periorbital areas with no swelling, redness, or edema. ENT: Nares patent. No nasal discharge, no septal abnormalities noted. Tympanic membranes are normal and external auditory canals are clear. Oropharynx with no redness, swelling, or masses, exudates, or evidence of obstruction, uvula midline. Mucous membranes moist. Neck: Trachea midline, no thyromegaly or masses palpated, and no cervical lymphadenopathy. Supple, full range of motion without nuchal rigidity, or vertebral point tenderness. No Meningismus. Chest/axilla: Normal chest wall appearance and motion. Nontender with no deformity. No lesions are appreciated. Cardiovascular: Regular rate and rhythm with a normal S1 and S2. No gallops, murmurs, or rubs. Normal PMI, no JVD. No pulse deficits. Respiratory: Lungs have equal breath sounds bilaterally, clear to auscultation and percussion. No rales, rhonchi or wheezes noted. No increased work of breathing, no retractions or nasal flaring. Abdomen/GI: Soft, non-tender, with normal bowel sounds. No distension or tympany. No guarding or rebound. No evidence of tenderness throughout. Back: No spinal tenderness. No costovertebral tenderness. Full range of motion. Skin: Warm, dry with normal turgor. Normal color with no rashes, no lesions, and no evidence of cellulitis. MS/ Extremity: Pulses equal, no cyanosis. Neurovascular intact. Full, normal range of motion. Neuro: Awake and alert, GCS 15, oriented to person, place, time, and situation. Cranial nerves II-XII grossly intact. Motor strength 5/5 in all extremities. Sensory grossly intact. Cerebellar exam normal. Normal gait. Psych: Awake, alert, with orientation to person, place and time. Behavior, mood, and affect are within normal limits. 13:22 : CVA tenderness, is absent, Pelvic Exam: is not necessary for this patient, Bladder: is normal, non-distended, non-tender, Sexual behavior: the patient is sexually active, and reports a single partner. Vital Signs: 11:10 BP 137 / 82; Pulse 72; Resp 18; Temp 98.1; Pulse Ox 100% ; Weight 81.65 kg; Height 5 ko1 ft. 7 in. ; 11:10 Body Mass Index 28.19 (81.65 kg, 170.18 cm) ko1 MDM: 11:32 Patient medically screened. [facility] 13:23 Differential diagnosis: dysfunctional uterine bleeding, dysmenorrhea, menometrorrhagia, jes menorrhea, molar preganancy, Neoplasm urinary tract infection. Data reviewed: vital signs, nurses notes, lab test result(s), radiologic studies, ultrasound. Consideration of Admission/Observation Escalation of care including admission/observation considered. I considered the following discharge prescriptions or medication management in the emergency department Medications were administered in the Emergency Department. See MAR. Independent interpretation of the following test(s) in the Emergency Department Radiology Department Ultrasound: My interpretation is vag probe usg. Test considered but Not performed: CT: no ct abd/pel. Historians other than the Patient: pt well informed. Care significantly affected by the following chronic conditions: Obesity, smoker. 03/21 11:34 Order name: Abo/rh Typing [facility] 03/21 11:34 Order name: Basic Metabolic Panel; Complete Time: 13:06 [facility] 03/21 11:34 Order name: CBC with Diff; Complete Time: 13:06 [facility] 03/21 11:34 Order name: PT-INR; Complete Time: 13:06 [facility] 03/21 11:34 Order name: US Transvaginal Study (Probe); Complete Time: 13:06 [facility] 03/21 11:34 Order name: IV Saline Lock; Complete Time: 12:34 [facility] 03/21 11:34 Order name: Labs collected and sent; Complete Time: 12:34 [facility] 03/21 11:34 Order name: NPO; Complete Time: 12:34 [facility] Administered Medications: 13:55 Not Given (Other Intervention Used): NS 0.9% IV 1000 ml IV at 1 bolus Per protocol; ph 1000 mL bolus Disposition Summary: 03/21/23 13:26 Discharge Ordered Location: Home jes Problem: new jes Symptoms: have improved jes Condition: Stable jes Diagnosis - Abnormal uterine and vaginal bleeding, unspecified jes - Other specified abnormal uterine and vaginal bleeding jes Followup: jes - With: Private Physician - When: 2 - 3 days - Reason: Recheck today's complaints, Continuance of care, Re-evaluation by your physician Followup: jes - With: Talita Rivera MD - When: 2 - 3 days - Reason: Recheck today's complaints, Re-evaluation by your physician Discharge Instructions: - Discharge Summary Sheet jes - Abnormal Uterine Bleeding jes - Iron-Rich Diet jes - Steps to Quit Smoking jes - Health Risks of Smoking jes - Dysfunctional Uterine Bleeding jes - Abnormal Uterine Bleeding, [id number] jes - Postmenopausal Bleeding, [id number] jes - Endometrial Biopsy jes - Managing the Challenge of Quitting Smoking jes Forms: - Medication Reconciliation Form jes - Thank You Letter jes - Antibiotic Education jes - Prescription Opioid Use jes - Patient Portal Instructions jes - Leadership Thank You Letter [facility] Prescriptions: - Ferrous Sulfate 325 mg (65 mg Iron) Oral Tablet - take 1 tablet by ORAL route every 8 hours; 90 tablet; Refills: 0, Product [facility] Selection Permitted - Diclofenac Sodium 75 mg Oral tablet,delayed release (DR/EC) - take 1 tablet by ORAL route 2 times per day; 20 tablet; Refills: 0, Product [facility] Selection Permitted Signatures: Dispatcher [employer] Rico Ayon MD MD cha Oliver, Kathy, RN RN koDebbie Dominguez RN ph
[2023-03-21 14:12] VITALS: BP 137/82; TEMP 98.1; O2SAT 100
== END 2023-03-21 13:55 | disposition home or self-care (01) ==
LOC: ER 10:49
DX: N93.8 Other specified abnormal uterine and vaginal bleeding (principal)
CPT/HCPCS: 36415; 76830; 80048; 85025; 85610; 86900; 86901; 99284